=== PATIENT | female | born 1985 | race Caucasian/White ===

== ENCOUNTER 2020-07-04 13:28 | Outpatient (REF) | payer MEDICAID, SELFPAY ==
[2020-07-04 15:33] LABS: Hematocrit 37.4 % (37-47); Hemoglobin 12.6 g/dl (12.0-16.0); Mean Corpuscular HGB Conc 33.7 g/dl (31.0-35.0); Mean Corpuscular Hemoglobin 31.3 pg (27.0-33.0); Mean Corpuscular Volume 92.8 fL (80-98); Mean Platelet Volume 10.8 fL (9.4-12.3); Platelet Count 218 X10*3/uL (160-400); Red Blood Count 4.03 X10*6/uL (4.20-5.50); Red Cell Distribution Width 12.2 % (11.0-16.0); White Blood Count 6.1 X10*3/uL (4.8-10.8)
[2020-07-04 16:05] LABS: Anion Gap 10 (12-20); Blood Urea Nitrogen 9 mg/dL (9-16); Calcium 8.7 mg/dL (8.4-10.2); Carbon Dioxide 27 mmol/L (22-29); Chloride 106 mmol/L (96-108); Estimated Glomerular Filt Rate > 60; Glucose Random 87 mg/dL (60-115); Potassium 4.3 mmol/l (3.3-5.1); Sodium 139 mmol/L (135-145)
[2020-07-04 16:29] LABS: TSH reflex Free T4 1.17 mIU/mL (0.32-4.0)
== END 2020-07-04 13:29 | disposition home or self-care (01) ==
LOC: HO.LAB 13:28
PROVIDERS: PCP Family Medicine; Visit Provider Internal Medicine Cardiovascular Disease
DX: R00.2 Palpitations (principal)
CPT/HCPCS: 36415; 80048; 84443; 85027; 93005; 99202

== ENCOUNTER → 2020-07-26 13:05 | Outpatient (REF) | payer MEDICAID, SELFPAY ==
--- NOTE | 2020-07-26 13:07 | CA_ITS ---
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 The visually estimated ejection fraction is between 60-65%. - No obvious valvular pathology seen on this study. Findings Left Ventricle Normal left ventricular cavity size. There is normal left ventricular wall thickness. The left ventricular systolic function is normal. The visually estimated ejection fraction is between 60-65%. There is no evidence of regional wall motion abnormalities. Diastolic function is normal for age. Right Ventricle Normal right ventricular cavity size and systolic function. Atria Both atria are normal in size. Aortic Valve The aortic valve was not well visualized. There is no aortic valve stenosis. There is no aortic valve regurgitation. Mitral Valve The mitral valve appears normal. There is no mitral valve regurgitation. There is no mitral valve stenosis. Pulmonic Valve The pulmonic valve was not well visualized. Tricuspid Valve Normal tricuspid valve structure. There is trace tricuspid valve regurgitation. The pulmonary artery systolic pressure is normal. Great Vessels The aortic annulus, sinuses of valsalva, and asc aorta are normal in size. Venous The inferior vena cava is normal in size and collapses greater than 50% with inspiration. Pericardium/Pleural There is no evidence of pericardial effusion. Prior Study Comparison No change compared to prior study dated: 01/05/2008. Recommendations, Care & Conclusions No obvious valvular pathology seen on this study. Measurements 2D Linear Measurements IVSd: 0.70 0.6-0.9/0.6-1.0 cm LVIDd: 3.93 3.9-5.3/4.2-5.9 cm LVIDd Index: 2.26 2.4-3.2/2.2-3.1 cm/m2 LVIDs: 2.69 2.0-3.6 cm LVPWd: 0.78 0.7-1.1 cm Ao Root: 2.60 2.1-3.5 cm LA Diam: 2.70 2.7-3.8/3.0-4.0 cm LAIDs Index: 1.55 1.5-2.3 cm/m2 LV Mass: 101.73 67-162/88-224 g LV Mass Index: 58.47 43-95/49-115 g/m2 LVOT Diam: 2.00 3.0+(-)1.3 cm Mitral Valve MV Pk E: 1.11 MV PK A: 0.82 MV Decel Time: 197.00 E/A: 1.40 E'Lateral: 14.20 E'Medial: 12.10 E/E' Med: 9.20 E/E' Lat: 7.80 PHT: 58.00 MVA PHT: 3.79 Decel Millard: 5.61 Aortic Valve AoV Pk Ortega: 1.33 AoV Mn Ortega: 0.92 AoV VTI: 0.33 AoV Pk Grad: 7.00 Aov Mn Grad: 4.00 TIRSO Cont.VTI: 2.25 LVOT LVOT Pk Ortega: 0.99 LVOT Mn Ortega: 0.66 LVOT VTI: 0.23 LVOT Pk Grad: 4.00 LVOT Mn Grad: 2.00 LVOT Diam: 2.00 LVOT Area: 3.14 Diastolic Function MV Pk E: 1.11 MV Pk A: 0.82 E/A: 1.40 E'Medial: 12.10 E/E' Med: 9.20 E' Laterial: 14.20 E/E' Lat: 7.80 Tricuspid Valve TR Pk Ortega: 1.90 TR Pk Grad: 14.00 RA Press: 3.00 RVSP: 17.00 Great Vessels Aorta Ao Root-2D: 2.60 2.0-3.7 cm Pulmonary Valve PV Pk Ortega: 1.06 Peak PV Grad: 4.00 Updated in Other Vendor System with Status of Final Raoul Nelson MD electronically signed on 07/27/2020 8:47:34 AM with status of Final
--- NOTE | 2020-07-26 13:07 | HM_ITS ---
IDENTIFICATION DATA: 35-year-old female. INDICATION FOR TEST: Palpitations. TECHNIQUE: The patient was hooked up to cardiac event monitor from 07/26/2020 to 08/25/2020 for a total period of 30 days. The patient was continuously monitored during this time. FINDINGS: The patient's baseline rhythm is normal sinus rhythm. There are occasional isolated PACs and PVCs noted. Some of the patient reported symptoms of palpitations correlated with isolated PACs. The patient's 1 episode of syncope, which correlated with sinus rhythm with PAC. No significant tachy or vida-arrhythmias were noted. CONCLUSION: 1. Baseline normal sinus rhythm. 2. Rare isolated PACs and PVCs. 3. Symptoms of palpitations correlating with isolated PACs. 4. Symptom of syncope correlating with normal sinus rhythm with PACs. Jorge Luis Young MD NRS/MODL / [id number]
== END ==
LOC: HO.CARD 13:05
PROVIDERS: Visit Provider Internal Medicine Cardiovascular Disease
DX: R00.2 Palpitations (principal)
CPT/HCPCS: 93270; 93306

== ENCOUNTER → 2020-09-05 09:19 | Outpatient (BNVA) | payer MEDICAID, SELFPAY | PROVIDERS: PCP Family Medicine; Visit Provider Internal Medicine Cardiovascular Disease ==